=== PATIENT | female | born 1970 | race Caucasian/White ===

== ENCOUNTER → 2017-01-21 | Outpatient (CLI) | payer BC ==
[~2017-01-21] MED LIST: ARMOUR THYROID30 MG PO; B-COMPLEX VIT P1 TAB PO; CALCIUM & MAGNE1 CAP PO; CALCIUM1 CAP PO; CANASA 1000MG1000 MG RC; DIGESTIVE ENZYM1 TAB PO; GLYCINE PO; M2 MAGNESIUM100 MG PO; MULTIPLE VITAMI1 CAP PO; ZINC10 M1 PO; [UNRECOGNIZED DRUG - OTHER] PO
== END ==
LOC: MC.RAD 09:17
DX: Z12.31 Encounter for screening mammogram for malignant neoplasm of breast (principal)

== ENCOUNTER → 2017-01-29 | Outpatient (CLI) | payer BC | LOC: COL.LAB 09:02 | DX: R53.83 Other fatigue (principal); R42 Dizziness and giddiness; Z77.120 Contact with and (suspected) exposure to mold (toxic); L30.9 Dermatitis, unspecified; R23.8 Other skin changes ==

== ENCOUNTER → 2017-02-25 | Outpatient (CLI) | payer BC | LOC: COL.LAB 08:45 | DX: Z01.89 Encounter for other specified special examinations (principal) ==

== ENCOUNTER → 2018-03-10 | Outpatient (CLI) | payer BC | LOC: MC.RAD 07:00 | DX: Z12.31 Encounter for screening mammogram for malignant neoplasm of breast (principal); N64.89 Other specified disorders of breast ==

== ENCOUNTER → 2018-03-14 | Outpatient (CLI) | payer BC | LOC: MC.RAD 08:53 | DX: R92.2 Inconclusive mammogram (principal); N64.89 Other specified disorders of breast ==

== ENCOUNTER → 2018-10-20 | Outpatient (CLI) | payer BC | LOC: MC.RAD 07:14 | DX: R92.2 Inconclusive mammogram (principal) | CPT/HCPCS: G0279 ==

== ENCOUNTER → 2019-03-11 | Outpatient (CLI) | payer BC | LOC: MC.RAD 10:42 | DX: R92.2 Inconclusive mammogram (principal) | CPT/HCPCS: G0279 ==

== ENCOUNTER → 2020-03-22 | Outpatient (CLI) | payer BC | LOC: MC.RAD 15:52 | DX: Z12.31 Encounter for screening mammogram for malignant neoplasm of breast (principal) ==

== ENCOUNTER 2021-02-22 07:42 | Day surgery (SDC) | payer BC ==
[~2021-02-22] VITALS: Ht 167.6 cm; Wt 57.1 kg
[2021-02-22 08:19] VITALS: BP 112/68; PULSE 79; TEMP 97.4
[2021-02-22] MEDS ORDERED: CALCIUM CITRATE PO (08:41)
[2021-02-22] MEDS ORDERED: NATURE'S B5000 IU/ML PO (08:44)
[2021-02-22] MEDS ORDERED: OMEGA-3 1000 MG1 CAP PO (08:46)
[2021-02-22] MEDS ORDERED: FLONASEALLERGY NS (08:54)
[2021-02-22 09:45] VITALS: BP 123/70; PULSE 74; TEMP 97.7
--- NOTE | 2021-02-22 09:45 | NUR ---
Patient sitting up comfortable in chair. Postop vital signs started. Patient request applesauce and apple juice.
[2021-02-22 10:00] VITALS: BP 121/100; PULSE 69
--- NOTE | 2021-02-22 10:00 | NUR ---
Patient sitting up comfortably in chair. Vital signs stable. Patient tolerating food and drink well.
[2021-02-22 10:15] VITALS: BP 115/67; PULSE 63
--- NOTE | 2021-02-22 10:15 | NUR ---
Patient sitting up comfortably in chair. Vital signs remain stable. Denies any discomfort. Discontinued IV withno complications. Reviewed discharge instruction and education material. Patient verbalized understanding. Instructed patient to call for ride home and to dress, then to call out for transportation to vehicle.
--- NOTE | 2021-02-22 10:30 | NUR ---
Transfered patient via wheelchair to personal vehicle where was waiting to drive her home.
== END 2021-02-22 10:30 ==
LOC: SDCO 07:42
DX: Z12.11 Encounter for screening for malignant neoplasm of colon (principal); K64.0 First degree hemorrhoids; K51.20 Ulcerative (chronic) proctitis without complications; K21.9 Gastro-esophageal reflux disease without esophagitis; G89.29 Other chronic pain; M54.9 Dorsalgia, unspecified; Z79.899 Other long term (current) drug therapy
CPT/HCPCS: J2704; J7030

== ENCOUNTER → 2022-04-10 | Outpatient (CLI) | payer BC ==
[~2022-04-10] MED LIST changes: +CALCIUM CITRATE PO; +FLONASEALLERGY NS; +NATURE'S B5000 IU/ML PO; +OMEGA-3 1000 MG1 CAP PO
== END ==
LOC: MC.RAD 03-14 10:30
DX: Z12.31 Encounter for screening mammogram for malignant neoplasm of breast (principal)

== ENCOUNTER 2023-08-16 07:27 | Emergency (ER) | payer BC ==
[~2023-08-16] VITALS: Ht 167.6 cm; Wt 59.1 kg
[~2023-08-16 07:27] MED LIST changes: +NORCO 325 MG-51 TAB PO
[2023-08-16 07:30] VITALS: TEMP 97.9
[2023-08-16 07:55] LABS: ARTERIAL BLD GAS O2 SATURATION 87.4 % (92-100); ARTERIAL BLD GAS TCO2 CT 19.2; ARTERIAL BLOOD GAS BASE EXCESS -8.9 (-2-2); ARTERIAL BLOOD GAS HCO3 17.9 meq/L (22-26); ARTERIAL BLOOD GAS PCO2 41.8 mmHg (35-45); ARTERIAL BLOOD GAS PO2 62.2 mmHg (80-100); ARTERIAL BLOOD GAS pH 7.25 (7.35-7.45)
[2023-08-16 08:02] LABS: BASO # 0.1 K/mm3 (0.0-0.2); BASO % 0.8 % (0.0-2.0); EOS # 0.1 K/mm3 (0.0-0.7); EOS % 1.5 % (0.0-4.0); GRAN # 3.7 K/mm3 (1.4-6.5); GRAN % 47.6 % (42.2-75.2); HEMATOCRIT 44.5 % (37.0-47.0); HEMOGLOBIN 14.2 g/dl (12.5-16.0); LYMPH # 3.4 K/mm3 (1.2-3.4); LYMPH % 42.9 % (20.0-51.0); MEAN CELL VOLUME 95 fl (80.0-100.0); MEAN CORPUSCULAR HEMOGLOBIN 30 pg (27-31); MEAN CORPUSCULAR HGB CONC 32 g/dl (33.0-37.0); MEAN PLATELET VOLUME 10.9 fl (7.4-10.4); MONO # 0.6 K/mm3 (0.1-0.6); MONO % 7.1 % (1.7-9.3); PLATELET COUNT 191 K/mm3 (130-400); REDCELL DISTRIBUTION WIDTH-CV 13.6 % (11.5-14.5)
[2023-08-16 08:19] LABS: ALBUMIN 3.6 gm/dL (3.5-5.0); BILIRUBIN,TOTAL 0.4 mg/dL (0.2-1.2); CREATININE, serum 0.88 mg/dL (0.57-1.11); POTASSIUM 3.9 mmol/L (3.5-4.5); TOTAL PROTEIN 7.3 gm/dL (6.2-8.1)
[2023-08-16 08:30] LABS: TROPONIN-I 0.013 ng/mL (0.00-0.033)
[2023-08-16 08:39] LABS: TSH w REFLEX 2.81 uIU/mL (0.350-4.940)
[2023-08-16 08:52] LABS: INR 1.1 (0.8-3.0); PROTHROMBIN TIME 11.9 SECONDS (9.7-12.8)
[2023-08-16 08:55] LABS: PARTIAL THROMBOPLASTIN TIME 28.6 SECONDS (26.0-37.0)
--- NOTE | 2023-08-16 09:43 | NUR ---
Initial visit; Patient brought into Emergency Services Department. [facility] first spoke with her , Isidoro while in the ER Waiting Room, letting him know [facility] is available and that [facility] is close by. He thanked her. Later [facility] took him to be with Fanta in ER 1 Treatment Room. Physician came and spoke with Isidoro regarding Fanta's status as patient. Fanta will be transferred to [facility] in [place] while stable. Isidoro declined prayer at this point. Bit Bender wished both him and Fanta well.
[2023-08-16 09:59] LABS: HEMATOCRIT 45.7 % (37.0-47.0); HEMOGLOBIN 14.4 g/dl (12.5-16.0); MEAN CELL VOLUME 97 fl (80.0-100.0); MEAN CORPUSCULAR HEMOGLOBIN 31 pg (27-31); MEAN CORPUSCULAR HGB CONC 32 g/dl (33.0-37.0); MEAN PLATELET VOLUME 10.4 fl (7.4-10.4); PLATELET COUNT 150 K/mm3 (130-400); RED BLOOD COUNT 4.71 M/mm3 (4.10-5.30); REDCELL DISTRIBUTION WIDTH-CV 13.6 % (11.5-14.5)
[2023-08-16 10:20] LABS: COLLECTION METHOD CLEAN CATCH
[2023-08-16 10:35] LABS: PH 6.5 (5.0-8.5); URINE APPEARANCE Clear (CLEAR/HAZY); URINE BLOOD 3+ (NEGATIVE); URINE COLOR Yellow (YELLOW); URINE GLUCOSE TRACE (NEGATIVE); URINE KETONE Negative (NEGATIVE); URINE NITRATE Negative (NEGATIVE); URINE PROTEIN(semi-quant) 2+ (NEGATIVE); URINE UROBILINOGEN 0.2 E.U/dL (0.2-1.0)
[2023-08-16 10:37] VITALS: BP 126/81; PULSE 105
== END 2023-08-16 11:07 | disposition short-term general hospital (02) ==
LOC: COL.ER 07:27
PROVIDERS: Emergency Medicine
DX: I26.99 Other pulmonary embolism without acute cor pulmonale (principal); J96.90 Respiratory failure, unspecified, unspecified whether with hypoxia or hypercapnia
CPT/HCPCS: A4314; C1751; J0171; J0330; J1644; J2405; J2704; J3010; J7030; J7060; Q9967